=== PATIENT | female | born 1945 | race Hispanic/Latino ===

== ENCOUNTER 2016-11-22 20:25 | Observation (INO) | payer MEDICARE ==
[2016-11-22 21:00] LABS: #Basophils 0.1 thou/uL (0.0-0.2); #Eosinphils 0.1 thou/uL (0.0-0.7); #Lymphocytes 1.7 thou/uL (1.20-3.40); #Monocytes 0.5 thou/uL (0.11-0.59); #Neutrophils 5.7 thou/uL (1.40-6.50); %Basophils 0.7 % (0.0-1.0); %Monocytes 6.4 % (0.0-10.0); Hematocrit 41.6 % (36.0-47.0); Mean Platelet Volume 8.7 fL (7.4-10.4); Red Blood Cell (RBC) Count 4.65 mill/uL (4.20-5.40)
[2016-11-22] MEDS ORDERED: Ondansetron HCl/PF 4 MG/2 ML Vial ONE (21:09)
[2016-11-22 21:22] LABS: ALT (SGPT) 42 U/L (8-55); AST (SGOT) 33 U/L (5-34); Alkaline Phosphatase 71 U/L (40-150); Anion Gap 16 mmol/L (10-20); BUN (Urea Nitrogen) 12 mg/dL (9.8-20.1); Bilirubin, Total 0.4 mg/dL (0.2-1.2); CK (CPK) 134 U/L (29-168); Calc. Creatinine Clearance 0 mL/min (70-130); Calcium 9.3 mg/dL (7.8-10.44); Carbon Dioxide 20 mmol/L (23-31); Chloride 108 mmol/L (98-107); Estimated GFR-MDRD 84; Globulin 3.2 g/dL (2.4-3.5); Protein, Total 7.3 g/dL (6.0-8.3)
[2016-11-22 21:25] LABS: Troponin I Less than 0.010 ng/mL (< 0.028)
--- NOTE | 2016-11-22 22:09 | CT ---
BRAIN CT WITHOUT IV CONTRAST: 11/22/16 HISTORY: 71-year-old female with headache and dizziness. There is no focal intracranial mass or midline shift. There is some mild atrophy and chronic white m atter ischemic change. the sinuses and mastoids are clear. There is noted to be a somewhat lobulated soft tissue mass in the left orbit posterior to the left optic globe. This mass measures approximat anselmo 1.2 x 1.6 cm. IMPRESSION: Approximately 1.2 x 1.6 cm diameter soft tissue mass in the posterior inferior left orbit posterior to the optic globe. No significant acute intracranial process. Consider nonemergent followup orbit M RI with and without IV contrast for further assessment of the intraorbital mass. Findings were discussed with Dr. Tan in the ER at 10:01 p.m. Code CR POS: [facility]
[2016-11-23 00:11] LABS: Troponin I Less than 0.010 ng/mL (< 0.028)
[2016-11-23] MEDS ORDERED: Acetaminophen 325 MG TAB PO PRN ×2 (00:12→07:23)
[2016-11-23] MEDS ORDERED: Ondansetron ODT 4 MG TAB SL PRN (00:12)
[2016-11-23] MEDS ORDERED: Ondansetron HCl/PF 4 MG/2 ML Vial IVP PRN ×2 (00:12→07:23)
[2016-11-23 00:32] VITALS: BMI 29.6
[2016-11-23 03:00] LABS: Troponin I Less than 0.010 ng/mL (< 0.028)
[2016-11-23] MEDS ORDERED: Zolpidem Tartrate 5 MG TAB PO PRN (07:23)
--- NOTE | 2016-11-23 07:42 | HP ---
PRIMARY CARE PROVIDER: [facility] call admission for [facility]. The patient has no primary care doctor. CHIEF COMPLAINT: Referred to the [facility] Hospitalist Service by [facility] michaelte r presenting to the emergency room for nausea, vomiting, dizziness. HISTORY OF PRESENT ILLNESS: The patient had an episode of about 30 minutes of vertiginous feeling, nausea and emesis x2, lasted about 30 minutes, came to the emergency room. The patient gives no his tory of double vision or visual defect. She had some mild headache afterwards, doing well now. Miriam martinez lady has not seen a physician since the of her last child, 44 years ago. PAST MEDICAL HISTORY: None. MEDICATIONS: None. ALLERGIES: None. PAST SURGICAL HISTORY: None. FAMILY HISTORY: Her parents both of cancer, but she does not know what type. She has 1 sister that has had hypertension, coronary artery disease. SOCIAL HISTORY: She is from her , does not smoke or drink alcohol. CODE STATUS: Full code status. Son at bedside, is next of kin and surrogate decision maker. REVIEW OF SYSTEMS: GENERAL: See present illness, otherwise no previous dizziness, fainting, headache. EYES: No double vision, blurred vision, flashing lights. ENT: No ear pain or drainage. No nasal bleeding. No trouble swallowing. CARDIAC: No chest pain, orthopnea or paroxysmal nocturnal dyspnea. RESPIRATIONS: No cough, wheezing or asthma. GASTROINTESTINAL: See present illness, otherwise no nausea, vomiting, abdominal pain or diarrhea. She had no blood in the emesis. GENITOURINARY: No hematuria, dysuria or nocturia. MUSCULOSKELETAL: No pain or swelling in her arms or legs. NEUROLOGIC: No history of strokes, seizures or focal weakness. PSYCHIATRIC: No anxiety or depression. SKIN: No bruises, bleeding or rash. HEME/LYMPH: No tender or swollen lymph nodes in axilla, inguinal, or cervical area. PHYSICAL EXAMINATION: GENERAL: The patient is alert, oriented and cooperative, very pleasant lady. VITAL SIGNS: Blood pressure 164/67, pulse 71, respirations 16, temperature 98.2. HEENT: Reveal pupils equal, round, and reactive to light. Extraocular movements are intact. Scler ae white. Tympanic membranes are clear. Nose clear. Oral mucous membranes are wet. Dental hygien e is good. NECK: Supple, without jugular venous distention, adenopathy or thyromegaly. CHEST: Clear to auscultation and percussion. HEART: Regular rate and rhythm. First and second heart sounds are clear. There are no murmurs or gallops. ABDOMEN: Soft, bowel sounds are normal. There is no hepatosplenomegaly, no mass, no rebound, no br uits. EXTREMITIES: Reveal no cyanosis, clubbing or edema. PULSES: Carotid, radial, femoral, and dorsalis pedis pulses intact and symmetric. SKIN: Warm and dry without bruises or rash. HEME/LYMPH: Reveals no tender or swollen lymph nodes in axilla, inguinal, or cervical area. NEUROLOGICAL: Cranial nerves II-XII are intact. She had no evidence of double vision with any move ment of her eyes. Her eyes were totally conjugate. Deep tendon reflexes symmetric. Moves all extr emities. LABORATORY AND X-RAY FINDINGS: Comp metabolic profile reveals a blood sugar of 116, chloride 108, C O2 20, otherwise normal. Cardiac enzymes done for reasons I cannot imagine are normal. CBC is norm al. CT of the brain was done which revealed no acute intracranial abnormality; however, there is a left 15 mm retro-orbital mass immediately behind the left eye, reviewed by myself. DIAGNOSES: 1. Left orbital fossa mass. 2. Dizziness. 3. Nausea and vomiting. PLAN: MRI, carotid ultrasound, discuss with appropriate surgeon.
--- NOTE | 2016-11-23 08:22 | ULT ---
BILATERAL CAROTID DUPLEX ULTRASOUND: HISTORY: Dizziness. TECHNIQUE: Bustos scale ultrasound with color flow and spectral Doppler imaging of the extracranial carotid arter y systems is performed bilaterally. FINDINGS: There is mild plaque formation on either side. The peak systolic velocity in the right ICA measures 105 cm/s with an end-diastolic velocity of 24 cm/s and a systolic ratio of 1.59. The peak systolic velocity in the left ICA measures 85 cm/s with an end-diastolic velocity of 29 cm/ s and a systolic ratio of 1.38. Flow in both vertebral arteries remains antegrade. IMPRESSION: No evidence of hemodynamically significant stenosis. POS: [facility]
[2016-11-23] MEDS ORDERED: Aspirin 325 mg Enteric Coated Tablet PO SCH (09:00)
--- NOTE | 2016-11-23 09:38 | MRI ---
BRAIN MRI WITH AND WITHOUT CONTRAST MRI ORBITS WITH AND WITHOUT CONTRAST: Comparison: Head CT previous day. Clinical history: Headache and dizziness, mass in orbital fossa. FINDINGS: The ventricular system is age appropriate in size. There is minimal chronic microvascular ischemic d isease. No acute territorial infarction, mass effect or midline shift. There is a hypointense T1 and hyperintense T2 lobular, circumscribed mass of the retrobulbar, intrac onal aspect of the left orbit which demonstrated avid enhancement. Mass abuts the posterior confines of the left globe, with transverse diameter of approximately 17 mm, craniocaudal dimension of 13 mm , and AP diameter of 9 mm. No associated proptosis. Intraocular lenses are appropriate in alignment. Mass insinuates between the lateral and inferior rectus muscles of the left orbit without significa nt associated muscular distortion. Symmetric CSF signal about each optic nerve. No pathologic mass a long either optic nerve. IMPRESSION: 1. Avidly enhancing circumscribed lobular retrobulbar, intraconal mass of the left orbit. This favor s an orbital cavernous hemangioma. 2. Recommend ophthalmology consultation for further evaluation. POS: [facility]
[2016-11-23 11:58] VITALS: BP 180/76
[2016-11-23 15:58] VITALS: TEMP 98.9
--- NOTE | 2016-11-23 17:10 | DIS ---
[facility] call admission for Francisco J DATE OF ADMISSION: 11/23/2016 DATE OF DISCHARGE: 11/23/2016 DISCHARGE DISPOSITION: Discharged home. 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 DISCHARGE MEDICATIONS: None. ALLERGIES: None. PENDING AT THE TIME OF DISCHARGE: Nothing. HOSPITAL COURSE: Patient was admitted after a 30-minute episodes of vertigo, nausea and vomiting. She was found on CT scan to have a mass behind her left eye. MRI confirmed that it was a hemangioma . Carotid ultrasounds were done, which revealed no stenosis. LABORATORY DATA: CBC is normal. Comp metabolic profile is essentially normal, chloride 108 and CO2 of 20. HOSPITAL COURSE: During her hospital stay, her blood pressure was in the 170/88 range. She had no history of high blood pressure. She was a bit anxious because of the diagnosis of the mass. In dis cussion, she was seen in consultation by Dr. Tyler Nunes, ophthalmology, who concurred that it was some meningioma and need no further workup. In discussion with her and her family, they agreed they wound a doctor to follow up for her blood pressure and to initiate treatment if it was needed. The y have been advised to do that in the next 1-2 weeks.
[2016-11-24] MEDS ORDERED: FLU VACC TS2017-18 (>65YR) 0.5 ML SYRINGE IM ONE (09:00)
== END 2016-11-23 17:00 | disposition home or self-care (01) ==
LOC: ERS 20:25 → 2SW 22:45
PROVIDERS: ADMIT Internal Medicine; ATTEND Internal Medicine
DX: D18.09 Hemangioma of other sites (principal); R42 Dizziness and giddiness; R11.2 Nausea with vomiting, unspecified; Z80.9 Family history of malignant neoplasm, unspecified
CPT/HCPCS: 70450; 70553; 80053; 82550; 82553; 83690; 84484 ×3; 85025; 93005; 93880; 96361; 96374; 99285; G0378; 36415; J2405

== ENCOUNTER 2018-10-17 13:43 | Inpatient (IN) | payer MEDICARE ==
--- NOTE | 2018-10-17 14:21 | RAD ---
Exam:Right knee 4 views HISTORY: Pain. Fall. COMPARISON: None FINDINGS: Impacted slightly displaced comminuted fracture involving the distal femoral metaphysis. As sociated fat fluid level in suprapatellar region. IMPRESSION: Distal femur fracture.
[2018-10-17] MEDS ORDERED: CEFAZOLIN 2 GM in Premix Bag 1 BAG IVPB SCH (16:15)
[2018-10-17] MEDS ORDERED: Morphine 2 MG/ML SYRINGE SLOW IVP PRN (16:34)
[2018-10-17] MEDS ORDERED: Dextrose 5% in Water 1,000 ML IV PRN (16:34)
[2018-10-17] MEDS ORDERED: Dextrose 50% Abboject 50 ML SYRINGE SLOW IVP PRN (16:34)
[2018-10-17] MEDS ORDERED: Ondansetron PF 4 MG/2 ML Vial IVP PRN (16:34)
[2018-10-17] MEDS ORDERED: Ondansetron ODT 4 MG TAB PO PRN (16:34)
[2018-10-17] MEDS ORDERED: hydrALAZINE 20 MG/ML VIAL SLOW IVP PRN (16:34)
[2018-10-17] MEDS ORDERED: traMADol HCl 50 MG TAB PO PRN (16:39)
--- NOTE | 2018-10-17 16:42 | CON ---
DATE OF CONSULTATION: This is Fabián Vuong PA-C dictating a report for Ab Sahni MD. HISTORY OF PRESENT ILLNESS: We were asked by Trauma in the ER to see the patient. 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 She apparently slipped on a toy, landing on both knees and sustained a right distal femur fracture with a condylar split. No loss of consciousness. The patient has some pain especially with moving, but otherwise is in good spirits. She is resting on a gurney in room 18 in the ER. The son is at the bedside. She does have a slightly deformed right foot from polio as a child, but claims no weakness or give-way weakness in that leg and her son states she is quite active. The patient denies any other current aches or pains and did not hit her head this fall. PAST MEDICAL HISTORY: Positive for hypertension. PAST SURGICAL HISTORY: None. MEDICATIONS: Losartan and baby aspirin. ALLERGIES: NO KNOWN DRUG ALLERGIES. FAMILY HISTORY: Both parents of cancer, type unknown. SOCIAL HISTORY: Lives at home with family. Takes care of the children. No alcohol, nicotine, or illicit drug products. REVIEW OF SYSTEMS: Again, she has had polio as a child. She has some hypertension, but her current main complaint is right knee and distal thigh pain. Otherwise, rest of review of systems negative. PHYSICAL EXAMINATION: GENERAL: Well-nourished and well-developed female, alert, pleasant, no acute distress. Speech clear. Affect pleasant. Answers questions appropriately. She is alert and orient x3. HEENT: Normal exam. Face symmetric. Tongue midline. NECK: Supple. Trachea midline. RESPIRATORY: Respirations 16. EXTREMITIES: Upper extremities; equal size, shape, symmetry, normal bulk and tone. Lower extremities, she has her right lower extremity flexed, but otherwise they are both equal size, shape. She is able to move both extremities. There is obvious deformity in the right foot. Sensations grossly intact to both extremities. DP and PT pulses are equal and symmetric. X-RAY: Shows a distal femur fracture with a condylar split. PLAN: Trauma will admit the patient. We will get her n.p.o. after midnight. Plan for surgery tomorrow, femoral plating. I have explained the procedure to the patient and the son and of course if further family is here tomorrow morning, we will go over this with them again. I explained the risks and benefits of surgery. They understand the risks and benefits and they are both amenable to go forth with surgery. She has had no surgery in the past. Has no allergies. We will get her consented, put on the surgery schedule and plan again for surgery first thing in the morning. Job ID: [id number]
--- NOTE | 2018-10-17 16:55 | RAD ---
Portable frontal chest radiograph: 10/17/2018 COMPARISON: None HISTORY: Preoperative patient FINDINGS: Lungs are clear. Heart and mediastinal contours appear within normal limits. Atheroscleroti c calcification of the aortic arch noted. IMPRESSION: No acute findings.
[2018-10-17 17:03] LABS: #Lymphocytes 1.3 thou/uL (1.20-3.40); #Monocytes 0.4 thou/uL (0.11-0.59); #Neutrophils 9.5 thou/uL (1.40-6.50); %Basophils 0.2 % (0.0-1.0); %Eosinophils 0.3 % (0.0-10.0); %Lymphocytes 11.1 % (21.0-51.0); %Monocytes 3.9 % (0.0-10.0); %Neutrophils 84.4 % (42.0-75.0); Hemoglobin 12.3 g/dL (12.0-16.0); Mean Corpuscular Hemoglobin 28.8 pg (27.0-31.0); Mean Corpuscular Volume 87.3 fL (78.0-98.0); Mean Platelet Volume 8.7 fL (7.4-10.4); Platelet Count 223 thou/uL (130-400); RBC Distribution Width 13.1 % (11.5-14.5); Red Blood Cell (RBC) Count 4.27 mill/uL (4.20-5.40); White Blood Cell (WBC) Count 11.3 thou/uL (4.8-10.8)
[2018-10-17 17:26] LABS: ALT (SGPT) 37 U/L (8-55); AST (SGOT) 31 U/L (5-34); Albumin 4.2 g/dL (3.4-4.8); Alkaline Phosphatase 53 U/L (40-150); Anion Gap 14 mmol/L (10-20); BUN (Urea Nitrogen) 16 mg/dL (9.8-20.1); Bilirubin, Total 0.6 mg/dL (0.2-1.2); Calc. Creatinine Clearance 0 mL/min (70-130); Calcium 9.7 mg/dL (7.8-10.44); Carbon Dioxide 26 mmol/L (23-31); Chloride 103 mmol/L (98-107); Estimated GFR-MDRD 85; Globulin 3.1 g/dL (2.4-3.5); Glucose 112 mg/dL (83-110); Phosphorus 3.5 mg/dL (2.3-4.7); Potassium 3.6 mmol/L (3.5-5.1); Protein, Total 7.3 g/dL (6.0-8.3); Sodium 139 mmol/L (136-145)
[2018-10-17 17:53] VITALS: BMI 28.3
[2018-10-17] MEDS: traMADol HCl 50 MG TAB PO SCH ×2 (18:19→23:24)
[2018-10-17] MEDS: Sodium Chloride 0.9% 1,000 ML IV SCH (18:21)
[2018-10-17] MEDS: Acetaminophen 1,000 MG in Premix Bag 1 BAG IVPB SCH ×2 (18:24→23:24)
[2018-10-17] MEDS: Famotidine 20 MG TAB PO SCH (20:57)
[2018-10-17] MEDS: Senokot S 8.6-50 MG TAB PO SCH (20:57)
[2018-10-17] MEDS: Ibuprofen 600 MG TAB PO SCH (20:57)
--- NOTE | 2018-10-17 23:17 | HP ---
REQUESTING DOCTOR: Dr. Tamez. CONSULTS: Orthopedic Surgery, Dr. Sahni. HISTORY OF PRESENT ILLNESS: This is a 73-year-old female who presented to the emergency room after a ground level fall. The patient was ambulating and stepped on a toy causing her to fall landing on her right knee. The patient denies any other injuries and denies hitting her head. The patient reports that she only has a history of high blood pressure and polio as a kid. Denies any chest pain, shortness of breath, cough, cold, or urinary symptoms. PAST MEDICAL HISTORY: Hypertension. SOCIAL HISTORY: Denies alcohol use, denies drug use, denies smoking history. PAST SURGICAL HISTORY: The patient denies. ALLERGIES: THE PATIENT DENIES ANY DRUG ALLERGIES. MEDICATIONS: 1. Losartan 12.5 mg daily. 2. Aspirin 81 mg daily. REVIEW OF SYSTEMS: A 10-point review of systems is negative unless otherwise indicated in the above HPI. PHYSICAL EXAMINATION: VITAL SIGNS: Blood pressure 143/64, pulse 80, respirations 18, temperature 98.7, SpO2 98% on room air. GENERAL: The patient is awake, alert, in no distress, denies any pain at this time. HEENT: Head is atraumatic, normocephalic, mucous membranes are moist. Trachea, midline. No cervical tenderness, normal range of motion of neck. RESPIRATORY: Bilateral breath sounds are clear, no wheezing rales or rhonchi, no distress, equal chest rise and fall. CARDIAC: Regular rate, regular rhythm, mild systolic murmur, 2/6. ABDOMEN: Soft, nontender, nondistended, active bowel sounds. PELVIS: Stable. No tenderness. EXTREMITIES: Moves all extremities, sensation intact, chronic right foot deformity due to polio as a child. Pain and swelling to right proximal knee. Positive distal pulses. Strength 5/5 in all extremities. NEUROLOGIC: No focal deficits, GCS 15. LABORATORY DATA: Labs are currently pending. DIAGNOSTIC DATA: Right knee x-ray, impression, distal femur fracture. Chest x-ray, no acute cardiopulmonary process, pending official read. ASSESSMENT: 1. Status post mechanical fall. 2. Right distal femur fracture. 3. History of hypertension and polio as a child. PLAN: We will admit the patient to the surgical floor. The patient will be placed n.p.o. after midnight. Plans for surgery for repair of right distal femur by Dr. Sahni tomorrow morning. We will place the patient on a pain regimen. IV maintenance fluids overnight. We will place a PT/OT order to evaluate and treat postop. We will also place a rehab screen as the patient may possibly need additional physical therapy postop. The plan will be discussed with the attending after this to dictation. The plan was discussed with the patient and the patient's family who agree. Job ID: [id number]
--- NOTE | 2018-10-18 01:04 | PRG ---
DATE OF SERVICE: 10/17/2018 SUBJECTIVE: The patient was seen today during the evening rounds. She was lying in bed with no signs of acute distress. She reported that her pain was well controlled and she had dinner with no issues. She is pending OR tomorrow for a right distal femur fracture. OBJECTIVE: VITAL SIGNS: The patient is afebrile, hemodynamically stable, saturating 96% on room air. GENERAL: Well-appearing, elderly female, sitting up in bed with no signs of acute distress. PULMONARY: Equal chest rise and fall. Clear breath sounds bilaterally. No signs of acute respiratory distress. CARDIAC: Regular rate and rhythm. GI: Abdomen is soft, nontender, and nondistended. EXTREMITIES: 2+ pulses in all extremities. No significant swelling noted. Tenderness to the left distal femur/knee area. NEUROLOGIC: GCS is 15. Gross motor and sensation are intact. ASSESSMENT: 1. Status post mechanical fall. 2. Right distal femur fracture. 3. History of polio and hypertension. PLAN: The patient will continue regular diet and be n.p.o. after midnight. She is also on normal saline at 100 an hour. She is to go to the OR with Orthopedic Surgery tomorrow for fixation of her right distal femur fracture. Postoperatively, she will work with Physical and Occupational Therapy and will likely need placement in acute rehab facility. We will continue her current pain regimen as well. Job ID: [id number]
[2018-10-18] MEDS: Sodium Chloride 0.9% 1,000 ML IV SCH ×2 (03:03→05:25)
[2018-10-18 04:36] LABS: #Eosinphils 0.1 thou/uL (0.0-0.7); #Lymphocytes 1.6 thou/uL (1.20-3.40); #Monocytes 0.8 thou/uL (0.11-0.59); %Basophils 0.6 % (0.0-1.0); %Eosinophils 1.2 % (0.0-10.0); %Lymphocytes 24.4 % (21.0-51.0); %Monocytes 12.2 % (0.0-10.0); %Neutrophils 61.7 % (42.0-75.0); Hemoglobin 10.1 g/dL (12.0-16.0); Mean Corpuscular HGB CONC 33.7 g/dL (32.0-36.0); Mean Corpuscular Hemoglobin 29.6 pg (27.0-31.0); Mean Corpuscular Volume 87.7 fL (78.0-98.0); Platelet Count 186 thou/uL (130-400); RBC Distribution Width 12.8 % (11.5-14.5); Red Blood Cell (RBC) Count 3.43 mill/uL (4.20-5.40); White Blood Cell (WBC) Count 6.5 thou/uL (4.8-10.8)
[2018-10-18 04:47] LABS: Anion Gap 12 mmol/L (10-20); BUN (Urea Nitrogen) 18 mg/dL (9.8-20.1); Calc. Creatinine Clearance 74 mL/min (70-130); Calcium 8.7 mg/dL (7.8-10.44); Carbon Dioxide 24 mmol/L (23-31); Chloride 107 mmol/L (98-107); Estimated GFR-MDRD 82; Glucose 105 mg/dL (83-110); Potassium 3.7 mmol/L (3.5-5.1); Sodium 139 mmol/L (136-145)
[2018-10-18] MEDS: Acetaminophen 1,000 MG in Premix Bag 1 BAG IVPB SCH ×2 (05:25→11:55)
[2018-10-18] MEDS: traMADol HCl 50 MG TAB PO SCH ×4 (05:26→23:05)
[2018-10-18] MEDS: Ibuprofen 600 MG TAB PO SCH ×3 (05:26→19:21)
[2018-10-18] MEDS: Famotidine 20 MG TAB PO SCH ×2 (08:11→19:21)
[2018-10-18] MEDS: Senokot S 8.6-50 MG TAB PO SCH ×2 (08:11→19:20)
[2018-10-18] MEDS: Polyethylene Glycol 3350 17 GM Packet PO SCH (08:11)
[2018-10-18] MEDS ORDERED: Sodium Chloride 0.9% 1,000 ML IV SCH (08:33)
[2018-10-18] MEDS ORDERED: Fentanyl 100 MCG/2 ML VIAL ONE (08:59)
[2018-10-18] MEDS ORDERED: Rocuronium Bromide 10 MG/ML (10ML VIAL) ONE (09:26)
[2018-10-18] MEDS ORDERED: Lidocaine 1% PF 5 ML VIAL ONE (09:26)
[2018-10-18] MEDS ORDERED: Glycopyrrolate 0.2 MG/ML 5 ML SYRINGE ONE (09:26)
[2018-10-18] MEDS ORDERED: Dexamethasone 20 MG/5 ML VIAL ONE (09:26)
[2018-10-18] MEDS ORDERED: PHENYLEPHRINE-NS 100 MCG/ML 10 ML SYRINGE ONE (09:26)
[2018-10-18] MEDS ORDERED: ePHEDrine 50 MG/ML VIAL ONE (09:26)
[2018-10-18] MEDS ORDERED: Ondansetron PF 4 MG/2 ML Vial ONE (09:26)
[2018-10-18] MEDS ORDERED: PROPOFOL 200 MG/20 ML VIAL ONE (09:26)
[2018-10-18] MEDS ORDERED: PROVENTIL INHALER 6.7 G (200 INHALATIONS) ONE (09:26)
[2018-10-18] MEDS ORDERED: Bupivacaine HCl 0.5%/Epinephrine 1:200,000/PF 30 ml Vial ONE (10:30)
--- NOTE | 2018-10-18 12:17 | RAD ---
Exam: Right knee 4 views: HISTORY: ORIF right knee Exam consists of intraoperative portable fluoroscopic spot views as well as follow-up plain film eval uation. Placement of a metal plate and numerous screws stabilizing the distal femur including the femoral int ercondylar region. Marked improvement in position and alignment. IMPRESSION: Postoperative ORIF distal right femur with metal plate and screws with improvement of position and al ignment.
--- NOTE | 2018-10-18 13:42 | OP ---
DATE OF PROCEDURE: 10/18/2018 PROCEDURE PERFORMED: Open reduction and internal fixation of right distal femur fracture. PREOPERATIVE DIAGNOSIS: Comminuted intra-articular right distal femur fracture. POSTOPERATIVE DIAGNOSIS: Comminuted intra-articular right distal femur fracture. COMPLICATIONS: None. ESTIMATED BLOOD LOSS: 150 mL. DRIVER LICENSE TECHNICIAN: Fabián Vuong PA-C IMPLANTS: Synthes 8-hole distal femoral variable angle locking plate. INDICATIONS: Ms. Bragg is a 73-year-old female, who fell and fractured her distal femur. She was indicated for open reduction and internal fixation to restore anatomic alignment and promote healing. Risks have been reviewed in detail. She elected to proceed with the operation. Risks to include infection, pain, scarring, bleeding, nerve or vascular injury, wound complication, posttraumatic arthritis, and others. DESCRIPTION OF PROCEDURE: Ms. Bragg was identified in the preoperative holding area. Her correct extremity was marked. She was carried to the operating room. She was given intravenous antibiotics. A multidisciplinary time-out was performed. The right lower extremity was prepped and draped in sterile fashion. We began the procedure with a lateral approach to the distal femur. We dissected down through the subcutaneous tissues to the fascia, which was opened. This exposed the underlying femur fracture. We elevated the vastus lateralis, exposing the more proximal aspect of the femur. At this point, we performed an arthrotomy. We evacuated a copious amount of hematoma. We then identified the intra-articular split in the femur. We used a reduction clamp to reduce the intra-articular split. A K-wire was placed followed by 4.5 mm screw across the condylar fragments. We then reduced the condyles back to the shaft of the femur and held this again with a reduction clamp. At this point, we then proceeded to apply our 8-hole plate. We placed our distal femoral plate and held this with K-wire fixation. We placed a proximal nonlocking screw. We took x-rays confirming that our position was appropriate. At this point, we proceeded to fill screw holes. We placed multiple distal locking screws followed by proximal locking screws. Again, we took x-ray images. We thoroughly irrigated with copious lavage. We then closed appropriately in layers. A sterile dressing and a knee immobilizer were placed. Job ID: [id number]
[2018-10-18] MEDS: CEFAZOLIN 2 GM in Premix Bag 1 BAG IVPB SCH ×2 (16:48→23:05)
[2018-10-18] MEDS: Acetaminophen 500 MG TAB PO SCH ×2 (17:35→23:05)
[2018-10-18] MEDS: Aspirin 81 mg Enteric Coated Tablet PO SCH (19:20)
[2018-10-18] MEDS ORDERED: Prevnar 13-Val Conj/PF 0.5 ML SYRINGE IM ONE (21:00)
--- NOTE | 2018-10-18 23:03 | PRG ---
DATE OF SERVICE: 10/18/2018 SUBJECTIVE: This is a 73-year-old female status post ground level fall with a right distal femur fracture. The patient has just returned from the OR, status post open reduction and internal fixation of her left distal femur fracture. The patient is awake, alert, in no distress, sitting up, talking and smiling with her family. The patient is tolerating a regular diet at this time. The patient reports no pain and states that she feels great. The patient has not worked with physical therapy yet, but is ready whenever they do come for physical therapy. OBJECTIVE: VITAL SIGNS: Blood pressure 128/56, pulse 60, respirations 18, SpO2 98% on room air, temperature 97.7. GENERAL: The patient is awake, alert, in no distress, sitting up in hospital bed. RESPIRATORY: Equal chest rise and fall, no respiratory distress. CARDIAC: Regular rate, regular rhythm. EXTREMITIES: Moves all extremities, sensation and motor intact in all extremities. Right lower extremity with Jamal bandage clean, dry, and intact and also a full knee brace. ASSESSMENT: 1. Status post mechanical fall, right distal femur fracture. 2. Postop day #0, open reduction and internal fixation of right distal femur fracture. 3. History of hypertension and polio as a child. PLAN: Continue comfort care. We will stop IV maintenance fluids as the patient is tolerating a regular diet. We will continue pain management as needed. The patient is pending physical and occupational therapy. If the patient is safe and does well with physical therapy, the patient may be able to go home tomorrow instead of inpatient rehab. The plan was discussed with the attending who agrees. The plan was also discussed with the patient and family who agree. Job ID: [id number]
--- NOTE | 2018-10-19 00:04 | PRG ---
DATE OF SERVICE: 10/18/2018 SUBJECTIVE: The patient was seen today during evening rounds. She was lying in bed with no signs of acute distress. She reported her pain was well controlled, and she was able to work with Physical Therapy today, tolerating a regular diet. Had no questions at the time of my evaluation. OBJECTIVE: VITAL SIGNS: The patient is afebrile and hemodynamically stable. She is saturating 97% on room air. GENERAL: Well-appearing elderly female, lying in bed with no signs of acute distress. PULMONARY: Equal chest rise and fall. No signs of acute respiratory distress. EXTREMITIES: 2+ pulses in all extremities. No significant swelling noted. Right lower extremity with splint that is in place, clean and dry. NEUROLOGIC: GCS is 15. Gross motor and sensation are intact. ASSESSMENT: 1. Status post mechanical fall. 2. Right distal femur fracture. 3. History of polio and hypertension. PLAN: We will continue the patient on the same pain control regimen and diet. She will continue to work with Physical and Occupational Therapy. We will continue to hold her home antihypertensive medication as it is not indicated at this time. Job ID: [id number]
[2018-10-19 05:03] LABS: #Lymphocytes 1.2 thou/uL (1.20-3.40); #Monocytes 0.8 thou/uL (0.11-0.59); #Neutrophils 6.2 thou/uL (1.40-6.50); %Basophils 0.2 % (0.0-1.0); %Eosinophils 0.1 % (0.0-10.0); %Lymphocytes 14.9 % (21.0-51.0); %Monocytes 9.7 % (0.0-10.0); %Neutrophils 75.1 % (42.0-75.0); Hemoglobin 8.9 g/dL (12.0-16.0); Mean Corpuscular Hemoglobin 29.5 pg (27.0-31.0); Mean Corpuscular Volume 89.2 fL (78.0-98.0); Mean Platelet Volume 9.4 fL (7.4-10.4); Platelet Count 150 thou/uL (130-400); RBC Distribution Width 12.9 % (11.5-14.5); White Blood Cell (WBC) Count 8.2 thou/uL (4.8-10.8)
[2018-10-19] MEDS: Ibuprofen 600 MG TAB PO SCH ×3 (05:24→21:14)
[2018-10-19] MEDS: Acetaminophen 500 MG TAB PO SCH ×3 (05:25→17:18)
[2018-10-19] MEDS: traMADol HCl 50 MG TAB PO SCH ×3 (05:25→17:21)
[2018-10-19 05:45] LABS: Anion Gap 8 mmol/L (10-20); BUN (Urea Nitrogen) 11 mg/dL (9.8-20.1); Calc. Creatinine Clearance 88 mL/min (70-130); Calcium 8.7 mg/dL (7.8-10.44); Carbon Dioxide 25 mmol/L (23-31); Chloride 112 mmol/L (98-107); Estimated GFR-MDRD Greater than 90; Glucose 108 mg/dL (83-110); Potassium 3.4 mmol/L (3.5-5.1); Sodium 142 mmol/L (136-145)
[2018-10-19] MEDS: Famotidine 20 MG TAB PO SCH ×2 (08:12→21:14)
[2018-10-19] MEDS: Aspirin 81 mg Enteric Coated Tablet PO SCH ×2 (08:12→21:13)
[2018-10-19] MEDS: Senokot S 8.6-50 MG TAB PO SCH ×2 (08:12→21:14)
[2018-10-19] MEDS: Polyethylene Glycol 3350 17 GM Packet PO SCH (08:12)
[2018-10-19] MEDS ORDERED: Potassium Chloride 20 MEQ TAB PO SCH (09:30)
[2018-10-19] MEDS: Ferrous Sulfate 325 MG TAB PO SCH (17:19)
--- NOTE | 2018-10-19 20:00 | PRG ---
DATE OF SERVICE: 10/19/2018 SUBJECTIVE: This is a 73-year-old female, status post ground-level fall with a right distal femur fracture. The patient is postop day #1, open reduction and internal fixation of her left distal femur fracture. The patient is currently ambulating with physical therapy. The patient reports that her pain is controlled and she is continuing to tolerate a regular diet at this time. The patient does feel like she will need additional physical therapy as she does not feel very stable on her feet at this time. OBJECTIVE: VITAL SIGNS: Temperature 98.5, pulse 80, respirations 18, SpO2 of 97% on room air, blood pressure 120/67. GENERAL: The patient is awake, alert, in no distress, ambulating with physical therapy. RESPIRATORY: Equal chest rise and fall. No respiratory distress. EXTREMITIES: Moves all extremities. Sensation and motor intact in all extremities. Right lower extremity with Jamal bandage clean, dry, and intact and knee immobilizer in place. LABORATORY DATA: WBC 8.2, RBC 3.0, hemoglobin 8.9, hematocrit 26.8. Sodium 142 , potassium 3.4, chloride 112, BUN 11, creatinine 0.59, estimated GFR 90, glucose 108, phosphorus 3.0, magnesium 2.0. ASSESSMENT: 1. Status post mechanical fall, right distal femur fracture. 2. Postoperative day #1, open reduction and internal fixation of right distal femur fracture. 3. History of hypertension and polio as a child. 4. Blood loss anemia, stable. PLAN: Continue comfort care. We will replace electrolytes. We will also place the patient on iron and vitamin C for anemia. Continue physical and occupational therapy. We will work with Case Management to get patient into inpatient rehab. The plan has been discussed with the patient and family who agree. Job ID: [id number] [facility]
[2018-10-19] MEDS: Ascorbic Acid 500 mg Chewable Tablet PO SCH (21:14)
--- NOTE | 2018-10-19 23:28 | PRG ---
DATE OF SERVICE: 10/19/2018 SUBJECTIVE: The patient was seen this evening, sitting up in bed during the evening rounds. Family was at bedside. She reported pain is well controlled and she is tolerating her diet. She worked with Physical and Occupational Therapy and was able to ambulate today. She had no questions or other concerns at the time of my evaluation. OBJECTIVE: VITAL SIGNS: The patient is afebrile and hemodynamically stable. Saturating 97% on room air. PULMONARY: Equal chest rise and fall. No signs of acute respiratory distress. CARDIAC: Regular rate and rhythm. GI: Abdomen is soft, nontender, nondistended. EXTREMITIES: Gross motor and sensation is intact. 2+ pulses in all extremities. NEUROLOGIC: GCS is 15. ASSESSMENT: 1. Status post mechanical fall from standing. 2. Right distal femur fracture, status post repair. 3. History of polio and hypertension. PLAN: Continue current diet and pain regimen. The patient is on aspirin for DVT prophylaxis. She will continue to work with Physical and Occupational Therapy and is pending placement at acute rehab facility. Job ID: [id number]
[2018-10-20] MEDS: Acetaminophen 500 MG TAB PO SCH ×4 (00:55→17:26)
[2018-10-20] MEDS: traMADol HCl 50 MG TAB PO SCH ×4 (00:57→17:27)
[2018-10-20 04:38] LABS: #Eosinphils 0.1 thou/uL (0.0-0.7); #Lymphocytes 1.6 thou/uL (1.20-3.40); #Monocytes 0.9 thou/uL (0.11-0.59); %Basophils 0.4 % (0.0-1.0); %Eosinophils 1.9 % (0.0-10.0); %Lymphocytes 23.5 % (21.0-51.0); %Monocytes 13.4 % (0.0-10.0); %Neutrophils 60.8 % (42.0-75.0); Hemoglobin 7.5 g/dL (12.0-16.0); Mean Corpuscular HGB CONC 34.3 g/dL (32.0-36.0); Mean Corpuscular Hemoglobin 30.1 pg (27.0-31.0); Mean Corpuscular Volume 87.9 fL (78.0-98.0); Mean Platelet Volume 9.6 fL (7.4-10.4); Platelet Count 126 thou/uL (130-400); RBC Distribution Width 13.1 % (11.5-14.5); Red Blood Cell (RBC) Count 2.49 mill/uL (4.20-5.40); White Blood Cell (WBC) Count 6.6 thou/uL (4.8-10.8)
[2018-10-20 04:57] LABS: Anion Gap 9 mmol/L (10-20); BUN (Urea Nitrogen) 15 mg/dL (9.8-20.1); Calc. Creatinine Clearance 95 mL/min (70-130); Calcium 8.3 mg/dL (7.8-10.44); Carbon Dioxide 25 mmol/L (23-31); Chloride 110 mmol/L (98-107); Estimated GFR-MDRD Greater than 90; Glucose 101 mg/dL (83-110); Magnesium 1.9 mg/dL (1.6-2.6); Phosphorus 2.8 mg/dL (2.3-4.7); Potassium 3.6 mmol/L (3.5-5.1); Sodium 140 mmol/L (136-145)
[2018-10-20] MEDS: Ibuprofen 600 MG TAB PO SCH (06:12)
[2018-10-20] MEDS: Famotidine 20 MG TAB PO SCH (09:07)
[2018-10-20] MEDS: Ferrous Sulfate 325 MG TAB PO SCH ×2 (09:07→17:26)
[2018-10-20] MEDS: Ascorbic Acid 500 mg Chewable Tablet PO SCH (09:07)
[2018-10-20] MEDS: Aspirin 81 mg Enteric Coated Tablet PO SCH (09:07)
[2018-10-20] MEDS: Polyethylene Glycol 3350 17 GM Packet PO SCH (09:08)
[2018-10-20] MEDS: Senokot S 8.6-50 MG TAB PO SCH (09:09)
--- NOTE | 2018-10-20 14:00 | PRG ---
DATE OF SERVICE: 10/20/2018 SUBJECTIVE: This is a 73-year-old female status post ground level fall with a right distal femur fracture. The patient is postop day #2, open reduction and internal fixation of her left distal femur fracture. The patient is sitting up in the chair eating breakfast. The patient denies any pain. The patient reports a good appetite. The patient continues to work well with physical therapy. The patient voices no complaints at this time. OBJECTIVE: VITAL SIGNS: Temperature 98.4, pulse 81, respirations 16, SpO2 of 98% on room air, blood pressure 115/68. GENERAL: The patient is awake, alert, in no distress, sitting up in the chair. RESPIRATORY: Equal chest rise and fall, no respiratory distress. Bilateral breath sounds clear. EXTREMITIES: Moves all extremities, normal sensation and movement in all extremities, right lower extremity with Jamal bandage and knee immobilizer in place. LABORATORY DATA: WBC 6.6, RBC 2.49, hemoglobin 7.5, hematocrit 21.9, platelets 126. Sodium 140, potassium 3.6, chloride 110, BUN 15, creatinine 0.55, estimated GFR greater than 90, glucose 101, calcium 8.3, phosphorus 2.8, magnesium 1.9. ASSESSMENT: 1. Status post mechanical fall, right distal femur fracture. 2. Postop day #2, open reduction and internal fixation of right distal femur fracture. 3. Blood loss anemia. 4. History of hypertension and polio as a child. PLAN: Continue comfort care. Continue iron and vitamin C for anemia. Continue physical and occupational therapy. The patient is pending placement to inpatient rehab. The plan has been discussed with the patient and family who agree. We will repeat labs in the morning to ensure that the patient's hemoglobin remains stable. The plan was discussed with the attending who agrees. Job ID: [id number]
[2018-10-20 15:54] VITALS: BP 123/74; TEMP 98.4
--- NOTE | 2018-10-20 19:34 | DIS ---
DATE OF ADMISSION: 10/17/2018 DATE OF DISCHARGE: 10/20/2018 CONSULTS: Orthopedic Surgery, Dr. Sahni. PROCEDURES: On 10/18/2018, open reduction and internal fixation of right distal femur fracture by Dr. Brady. PRIMARY DIAGNOSES: Mechanical fall, right distal femur fracture. SECONDARY DIAGNOSES: History of hypertension and polio as a child. DISCHARGE MEDICATIONS: 1. Tylenol 1000 mg q.6 hours. 2. Vitamin C 500 mg p.o. b.i.d. 3. Aspirin 81 mg p.o. b.i.d. for 30 days. 4. Ferrous sulfate 325 mg b.i.d. 5. MiraLAX 17 g p.o. daily. 6. Senokot-S 2 tablets p.o. b.i.d. 7. Tramadol 50 mg p.o. q.6 hours p.r.n. pain #30. 8. Losartan 12.5 mg daily. HISTORY OF PRESENT ILLNESS AND HOSPITAL COURSE: This is a 73-year-old female who presented to the emergency room after a ground level fall. The patient states that she was ambulating and stepped on a toy, causing her to fall, landing on her right knee. The patient denies any other injuries. The patient denies hitting her head. The patient denies having any chest pain, shortness of breath, or dizziness prior to falling. The patient states that she only has a history of high blood pressure and polio as a child. The patient did very well postop and was able to tolerate a regular diet and participate with physical therapy using a walker. On the day of discharge, the patient was examined, and her vital signs were stable. The patient's exam was unremarkable including cardiopulmonary and GI exam. The patient was deemed stable for discharge to inpatient rehab for continued physical and occupational therapy. DISPOSITION: Stable. DISCHARGE INSTRUCTIONS: 1. Location: Inpatient rehab. 2. Diet: Regular diet. 3. Activity: Toe-touch weightbearing right lower extremity. 4. Followup: Follow up with Dr. Brady as directed. No need to follow up with Trauma Services. Please call if you have any questions. This is just a summary of the hospital course. Job ID: [id number] [facility]
--- NOTE | 2018-10-23 21:55 | PQF ---
--[employer] Program Administrator Crystal Reports Winform ViewerLEIUSUKHWINDERMANOLO WILLS [id number] [facility] [id number] CLINICAL DOCUMENTATION CLARIFICATION FORM: POST DISCHARGE Addendum to original discharge summary date: ____ Late entry note date: __ DATE:10/24/2018 ATTN: MANOLO FAIR Please exercise your independent, professional judgment in responding to the clarification form. Clinical indicators are provided on the bottom of this form for your review Please check appropriate box(s): [ x] Acute blood loss anemia [ ] Post-op anemia related to acute blood loss [ ] Anemia: [ ] Aplastic [ ] Nutritional [ ] Drug induced (specify) ___ [ ] Hemolytic [ ] Hereditary [ ] Acquired [ ] Autoimmune [ ] Non-autoimmune [ ] Enzyme disorder [ ] Chronic Anemia: [ ] Blood loss [ ] Hemolytic [ ] Simple [ ] Due to Vitamin B12 Deficiency [ ] Other [ ] Anemia of Chronic Disease (please specify) [ ] Anemia due to Neoplasm: [ ] Primary [ ] Secondary [ ] Anemia due to (please choose): [ ] Due to Chemotherapy [ ] Due to Radiotherapy [ ] Due to Immunotherapy [ ] Other diagnosis [ ] Unable to determine For continuity of documentation, please document condition throughout progress notes and discharge summary. Thank You. CLINICAL INDICATORS - SIGNS / SYMPTOMS / LABS: -Blood loss anemia, stable, Progress note, 10/19, MANOLO FAIR -Estimated blood loss : 150ml-OP report, 10/18, Jose Antonio Galan MD -Hgb: 12.3 on 10/17, Hgb: 7.5L on 10/20-Laboratory -HCT:37.3 on 10/17, Hct: 21.9L on 10/20-Laboratory RISK FACTORS -ORIF-OP report, 10/18, Jose Antonio Galan MD -Hx of polio as child-DS, 10/20-MANOLO FAIR -Right distal femur fracture-Progress note, 10/20, MANOLO FAIR TREATMENTS: -Ferrous sulfate.PO-10/19 [employer] Program Administrator Crystal Reports Winform Viewer (This form is maintained as a part of the permanent medical record) 2014 [email or web address]. All Rights Reserved Riya Walsh [not provided] [not provided] MTDD
== END 2018-10-20 19:18 | DRG 481 ==
LOC: ERS 13:43 → SJJU 16:17
PROVIDERS: ADMIT Surgery; ATTEND Surgery
PROC: 0QSB04Z Reposition Right Lower Femur with Internal Fixation Device, Open Approach (ICD-10-PCS; principal; 2018-10-18)
DX: S72.401A Unspecified fracture of lower end of right femur, initial encounter for closed fracture (principal); D62 Acute posthemorrhagic anemia; I10 Essential (primary) hypertension; W01.0XXA Fall on same level from slipping, tripping and stumbling without subsequent striking against object, initial encounter; Y93.9 Activity, unspecified; Z86.12 Personal history of poliomyelitis
CPT/HCPCS: 36415; 71045; 76000; 80048; 80053; 83735; 84100; 85025; C1713; C1769; G0390; J0131; J0670; J0690; J1100; J2001; J2405; J2704; J3010; J3490